=== PATIENT | female | born 1960 | race Two or more races ===

== ENCOUNTER 2020-04-05 06:18 | Day surgery (SDC) | payer OTHER ==
[~2020-04-05] VITALS: Ht 175.3 cm; Wt 74.8 kg
[2020-04-05] VITALS (8 sets, daily range): BP systolic 114–128; BP diastolic 62–73
[2020-04-05] MEDS ORDERED: HYDROCHLOROTHIA25 MG ORAL (06:53)
[2020-04-05] MEDS ORDERED: METFORMIN HCL500 M1 ORAL (06:53)
[2020-04-05] MEDS ORDERED: FORTEO2.4 ML SUBQ (06:53)
[2020-04-05] MEDS ORDERED: TRAZODONE HCL50 MG ORAL (06:53)
[2020-04-05] MEDS ORDERED: NS 500ML ONE (07:00)
[2020-04-05] MEDS ORDERED: Lidocaine 1% MPF 10mg/ml 5ml ONE (07:00)
--- NOTE | 2020-04-05 07:24 | Pre-Procedure Note/Attestation ---
Pre-Procedure Note/Attestation Complete Prior to Procedure Planned Procedure: not applicable Procedure Narrative: Colonoscopy, possible biopsy, polypectomy, hemostasis, submucosal injection Indications for Procedure Pre-Operative Diagnosis: rectal bleeding Attestation I attest that I discussed the nature of the procedure; its benefits; risks and complications; and alternatives (and the risks and benefits of such alternatives ), prior to the procedure, with the patient (or the patient's legal b2b outside sales representative). I attest that, if there was a reasonable possibility of needing a blood transfusion, the patient (or the patient's legal b2b outside sales representative) was given the [facility] standardized written summary, pursuant to the [place] Blood Safety Act ([place] Health and Safety Code # 1645, as amended). I attest that I re-evaluated the patient just prior to the surgery and that there has been no change in the patient's H&P, except as documented below: Mayra Gallegos MD Apr 05, 2020 07:24
[2020-04-05] MEDS ORDERED: fentaNYL 100 mcg/2 mL IV PRN (07:30)
[2020-04-05] MEDS ORDERED: DiphenhydrAMINE 50mg/ml Inj IVP PRN (07:30)
[2020-04-05] MEDS ORDERED: Atropine Inj 1mg/10ml Syr IV PRN (07:30)
[2020-04-05] MEDS ORDERED: Midazolam 2mg/2ml Inj IVP PRN (07:30)
--- NOTE | 2020-04-05 07:32 | Anethesia Preoperative Eval ---
Anesthesia Pre-op PMH/ROS General Date of Evaluation: Apr 05, 2020 Time of Evaluation: 07:15 Anesthesiologist: sadaf ASA Score: ASA 3 Mallampati Score Class I : Soft palate, uvula, fauces, pillars visible Class II: Soft palate, uvula, fauces visible Class III: Soft palate, base of uvula visible Class IV: Only hard plate visible Mallampati Classification: Class II Surgeon: paul Diagnosis: rectal bleeding Surgical Procedure: colonoscopy Anesthesia History: none Social History: smoking - nonsmoker Family History: no anesthesia problems Allergies: Coded Allergies: No Known Allergies (Unverified , 04/05/20) Medications: see eMAR Patient NPO?: Yes Past Medical History Cardiovascular: Reports: HTN Gastrointestinal/Genitourinary: Reports: other - hemorrhoids, diverticulosis Endocrine: Reports: DM PSxH Narrative: tmj sx, tonsillectomy Anesthesia Pre-op Phys. Exam Physician Exam Last Vital Signs Date Time Temp Pulse Resp B/P (MAP) Pulse Ox O2 Delivery O2 Flow Rate FiO2 04/05/20 06:56 97.0 18 18 123/73 96 Room Air Constitutional: NAD Neurologic: CN 2-12 intact Cardiovascular: RRR Respiratory: CTA Gastrointestinal: S/NT/ND Airway Exam Mallampati Score: Class II MO: limited Neck: flexible TMD: 2fb ROM: limited Anesthesia Pre-op A/P Labs COVID-19 negative Risk Assessment & Plan Assessment: asa3 Plan: mac Status Change Before Surgery: No Pre-Antibiotics Drug: Teena Jimenez MD Apr 05, 2020 07:32
--- NOTE | 2020-04-05 08:04 | Endoscopy Procedure Note ---
Endoscopy Procedure Note General Procedures Performed: colonoscopy Operative Findings/Diagnosis: banegas diverticulosis Specimen: none Pt Tolerated Procedure Well: Yes Estimated Blood Loss: none Anesthesia Anesthesiologist: Dr. Camilo Guadarrama MD Anesthesia: moderate sedation Medications Medication Given: see anesthesia record Inserted Devices Implant(s) used?: No Quality Quality of Bowel Preparation: Excellent Did scope reach the cecum?: Yes Was there any complications?: No GI Core Measures 50 yrs or older w/o bx or poly: Yes 10yrs. F/U recommended: No If not recommended, why?: Above average risk Mayra Gallegos MD Apr 05, 2020 08:04
--- NOTE | 2020-04-05 08:20 | Immediate Post-Op Evaluation ---
Immediate Post-Op Evalulation Immediate Post-Op Evalulation Procedure: colonoscopy Date of Evaluation: Apr 05, 2020 Time of Evaluation: 08:20 IV Fluids: 350ml 0.9ns Blood Products: none Estimated Blood Loss: negligible Blood Pressure Systolic: 128 Blood Pressure Diastolic: 69 Pulse Rate: 64 Respiratory Rate: 18 O2 Sat by Pulse Oximetry: 100 Temperature (Fahrenheit): 97.0 Pain Score (1-10): 0 Nausea: No Vomiting: No Complications none Patient Status: awake, reacts, patent Hydration Status: adequate Drug: Teena Jimenez MD Apr 05, 2020 08:20
--- NOTE | 2020-04-05 08:22 | 48 Hour Post Anesthesia Eval ---
Post Anesthesia Evaluation Procedure: colonoscopy Date of Evaluation: Apr 05, 2020 Time of Evaluation: 08:22 Blood Pressure Systolic: 123 0: 68 Pulse Rate: 58 Respiratory Rate: 18 Temperature (Fahrenheit): 97.0 O2 Sat by Pulse Oximetry: 100 Airway: patent Nausea: No Vomiting: No Pain Intensity: 0 Hydration Status: adequate Cardiopulmonary Status: stable Mental Status/LOC: patient returned to baseline Post-Anesthesia Complications: none Follow-up care needed: N/A Teena Garcia MD Apr 05, 2020 08:22
--- NOTE | 2020-04-05 11:59 | Operative Note - Dictated ---
DATE OF OPERATION: 04/05/2020 PREPROCEDURE DIAGNOSIS: Rectal bleeding. POSTPROCEDURE DIAGNOSES: Pandiverticulosis, large internal hemorrhoids. PROCEDURE: Colonoscopy. SURGEON: Mayra Gallegos MD. ANESTHESIOLOGIST: Tenea Garcia MD. ANESTHESIA: Propofol sedation. INDICATION FOR PROCEDURE: The patient is a 59-year-old female, who came to my office on February 26, 2020 with a history of rectal bleeding, sometimes occurring through her clothes. The patient reports that she has bled through her clothes at least four times and had large internal hemorrhoids. In light of her symptoms and bleeding, it was determined at this time to proceed with a colonoscopy prior to her hemorrhoid surgery. DESCRIPTION OF PROCEDURE: Upon consent of the patient, the patient was brought to the procedure room, and placed in left lateral decubitus position. Once adequate sedation was established with propofol drip, digital rectal exam was performed, which showed some large internal hemorrhoids. There were no external anal skin tags. The Olympus colonoscope was advanced through the anus and into the rectum. The descending colon, splenic flexure, transverse colon, hepatic flexure, and ascending colon were visualized. The cecum was easily reached and the ileocecal valve and appendiceal orifice were identified. The patient's prep was noted to be good. The colonoscope was slowly withdrawn. There was noted to be pandiverticulosis extending all the way to her right colon. Some of these were wide-based, but not acutely inflamed. Upon reaching the rectum, the colonoscope was retroflexed and there were noted to be large internal hemorrhoids. The scope was straightened, air was evacuated from the rectum, the colonoscope was removed. The patient was awakened from anesthesia and brought to postanesthesia recovery in stable condition. There were no complications. IMPRESSION: Pandiverticulosis, large internal hemorrhoids. PLAN: Repeat colonoscopy in five years. Continue high-fiber diet, yearly followup. Mayra Gallegos M.D. DR: JEANNIE JOB#: [id number] CC: Mayra Gallegos MD.; Fax#: [phone]
== END 2020-04-05 09:20 | disposition home or self-care (01) ==
LOC: GAS 06:18
DX: K57.30 Diverticulosis of large intestine without perforation or abscess without bleeding (principal); K64.8 Other hemorrhoids; I10 Essential (primary) hypertension; E11.9 Type 2 diabetes mellitus without complications; K58.9 Irritable bowel syndrome, unspecified; M81.0 Age-related osteoporosis without current pathological fracture
CPT/HCPCS: 45378; 94003; J2405; J2704; J7040; 94150

== ENCOUNTER 2020-04-07 09:02 | Day surgery (SDC) | payer OTHER ==
[~2020-04-07] VITALS: Ht 175.3 cm; Wt 73.9 kg
[2020-04-07] VITALS (12 sets, daily range): BP systolic 102–129; BP diastolic 52–82
--- NOTE | 2020-04-07 07:07 | Pre-Procedure Note/Attestation ---
Pre-Procedure Note/Attestation Complete Prior to Procedure Planned Procedure: not applicable Procedure Narrative: Procedure for Prolapse and Hemorrhoids Indications for Procedure Pre-Operative Diagnosis: Rectal bleeding Attestation I attest that I discussed the nature of the procedure; its benefits; risks and complications; and alternatives (and the risks and benefits of such alternatives ), prior to the procedure, with the patient (or the patient's legal commissary representative). I attest that, if there was a reasonable possibility of needing a blood transfusion, the patient (or the patient's legal commissary representative) was given the [facility] standardized written summary, pursuant to the [place] Blood Safety Act ([place] Health and Safety Code # 1645, as amended). I attest that I re-evaluated the patient just prior to the surgery and that there has been no change in the patient's H&P, except as documented below: Mayra Gallegos MD Apr 07, 2020 07:07
--- NOTE | 2020-04-07 08:54 | 48 Hour Post Anesthesia Eval ---
Post Anesthesia Evaluation Procedure: Hemorrhoidectomy Date of Evaluation: Apr 07, 2020 Time of Evaluation: 13:23 Blood Pressure Systolic: 128 0: 72 Pulse Rate: 73 Respiratory Rate: 18 Temperature (Fahrenheit): 98 O2 Sat by Pulse Oximetry: 99 Airway: patent Nausea: No Vomiting: No Pain Intensity: 1 Hydration Status: adequate Cardiopulmonary Status: Stable Mental Status/LOC: patient returned to baseline Follow-up Care/Observations: 0 Post-Anesthesia Complications: 0 Follow-up care needed: ready to discharge David Vicente MD Apr 07, 2020 08:54
--- NOTE | 2020-04-07 08:54 | Immediate Post-Op Evaluation ---
Immediate Post-Op Evalulation Immediate Post-Op Evalulation Procedure: Hemorrhoidectomy Date of Evaluation: Apr 07, 2020 Time of Evaluation: 11:09 IV Fluids: 700 LR Blood Products: 0 Estimated Blood Loss: 10 Urinary Output: 0 Blood Pressure Systolic: 131 Blood Pressure Diastolic: 69 Pulse Rate: 74 Respiratory Rate: 16 O2 Sat by Pulse Oximetry: 100 Temperature (Fahrenheit): 97.6 Pain Score (1-10): 1 Nausea: No Vomiting: No Complications 0 Patient Status: awake, reacts, patent, none Hydration Status: adequate Dru Gram Cefoxitin IV Given Within 1 Hr of Incision: Yes Time Given: 10:16 David Vicente MD Apr 07, 2020 08:53
[~2020-04-07 09:02] MED LIST: Acetaminophen (Non formulary) 100 ML IV ONE; Atropine Sulfate 0.4mg/ml inj IVP PRN; DiphenhydrAMINE 50mg/ml Inj IVP PRN; FORTEO2.4 ML SUBQ; HYDROCHLOROTHIA25 MG ORAL; HYDROcodone/Acetamin 5/325 tab ORAL PRN; HYDROcodone/Acetamin 7.5/325 tab ORAL PRN; Ketorolac 30mg Inj IV PRN; LORazepam Inj 2mg/ml 1ml IV PRN; LR 1000ml 1,000 ML IVLG SCH; Labetalol 5mg/ml 20ml vial IV PRN; Lidocaine 1% Plain 30 ml INJ ONE; METFORMIN HCL500 M1 ORAL; Metoclopramide 10mg/2ml Inj IVP PRN; Midazolam 2mg/2ml Inj IVP PRN; Sodium Chloride 10ml vial INJ ONE; TRAZODONE HCL50 MG ORAL; fentaNYL 100 mcg/2 mL IV PRN; oxyCODONE HCL/Acetaminophen 5/325mg ORAL PRN
[2020-04-07] MEDS ORDERED: EPINEPHrine 1mg/1ml Amp ONE (09:43)
[2020-04-07] MEDS ORDERED: Ropivacaine 5mg/ml Vial 20ml INJ ONE (09:44)
[2020-04-07] MEDS ORDERED: cefOXitin 2gm Inj ONE (09:44)
[2020-04-07] MEDS ORDERED: NS Irrig 1000ml IRRIG ONE ×2 (09:56→10:19)
--- NOTE | 2020-04-07 09:56 | Anethesia Preoperative Eval ---
Anesthesia Pre-op PMH/ROS General Date of Evaluation: Apr 07, 2020 Time of Evaluation: 09:49 Anesthesiologist: Cinthia ASA Score: ASA 3 Mallampati Score Class I : Soft palate, uvula, fauces, pillars visible Class II: Soft palate, uvula, fauces visible Class III: Soft palate, base of uvula visible Class IV: Only hard plate visible Mallampati Classification: Class II Surgeon: El Diagnosis: Hemorrhoids Surgical Procedure: Hemorroidectomy Anesthesia History: none Family History: no anesthesia problems Allergies: Coded Allergies: No Known Allergies (Unverified , 04/05/20) Medications: see eMAR Patient NPO?: Yes Past Medical History Cardiovascular: Reports: HTN Gastrointestinal/Genitourinary: Reports: other - IBS Endocrine: Reports: DM Musculoskeletal/Integumentary: Reports: other - Osteoporosis PSxH Narrative: D/C, Multiple Foot SXs Anesthesia Pre-op Phys. Exam Physician Exam Last Vital Signs Date Time Temp Pulse Resp B/P (MAP) Pulse Ox O2 Delivery O2 Flow Rate FiO2 04/07/20 09:42 Room Air 04/07/20 09:30 97.6 77 20 129/82 98 Constitutional: NAD Neurologic: CN 2-12 intact Cardiovascular: RRR Respiratory: CTA Gastrointestinal: S/NT/ND Airway Exam Mallampati Score: Class II MO: full ROM: limited Teeth: missing, intact Anesthesia Pre-op A/P Risk Assessment & Plan Assessment: ASA 3 Plan: TIVA Status Change Before Surgery: No Pre-Antibiotics Dru Grams Ancef IV Given Within 1 Hr of Incision: Yes Time Given: 10:16 David Vicente MD Apr 07, 2020 09:56
[2020-04-07] MEDS ORDERED: Sterile Water Irrig 1000ml IRRIG ONE (10:00)
[2020-04-07] MEDS ORDERED: Acetic Acid 3% Solution 15ml TOPIC ONE (10:00)
[2020-04-07] MEDS ORDERED: Flumazenil 0.5mg/5ml Inj IV ONE (10:45)
--- NOTE | 2020-04-07 10:54 | Brief Operative Note ---
Immediate Post Operative Note Operative Note Pre-op Diagnosis: Rectal bleeding Procedure: Procedure for Prolapse and Hemorrhroids (PPH) Post-op Diagnosis: large internal hemorrhoids Post-op Diagnosis: same as pre-op Findings: consistent w/pre-op dx studies Surgeon: Mayra Gallegos MD Anesthesiologist: David Vicente MD Anesthesia: moderate sedation Specimen: yes Complications: none Condition: stable Fluids: see anesthesia record Estimated Blood Loss: minimal Drains: none Implant(s) used?: No Mayra Gallegos MD Apr 07, 2020 10:54
[2020-04-07] MEDS: Meperidine 25mg/0.5ml Inj (FOR RIGORS ONLY) IV PRN ×2 (11:05→11:34)
[2020-04-07] MEDS: Hydromorphone 0.5mg/0.5ml inj IVP PRN ×2 (11:05→11:20)
--- NOTE | 2020-04-07 15:45 | Operative Note - Dictated ---
DATE OF OPERATION: 04/07/2020 PREOPERATIVE DIAGNOSIS: Prolapsing large bleeding internal hemorrhoids. POSTOPERATIVE DIAGNOSIS: Prolapsing large bleeding internal hemorrhoids. PROCEDURE: Procedure of prolapse and hemorrhoids (PPH). SURGEON: Mayra Gallegos MD. ANESTHESIOLOGIST: David Vicente MD. ANESTHESIA: Propofol sedation with local anesthetic. INDICATION FOR PROCEDURE: The patient is a 59-year-old female, who came to [facility] in the office on February 26, 2020 with a history of rectal bleeding which was internal hemorrhoids that occasionally bleeds through her clothes. The patient had a colonoscopy done at [facility] in 2018. In light of the patient's bleeding and discomfort, it was determined that it is time to proceed with the procedure for prolapse and hemorrhoids. The patient had a colonoscopy done by [facility] two days ago, which was significant for pandiverticulosis and large internal hemorrhoids. She had no polyps found. DESCRIPTION OF PROCEDURE: Upon consent of the patient, the patient was brought to the operating room, placed in the prone nona-knife position on the operating table. Once adequate sedation was established with propofol drip, the patient's buttocks were prepped and draped in usual surgical fashion. A 40 mL of 0.5% ropivacaine with epinephrine mixed with 8 mg of dexamethasone was used as a perianal and pudendal block. A Hill-Carroll retractors placed into the anal canal. There is to be large prolapsing internal hemorrhoids, especially in the right anterior region. The dilator Ethicon PPH stapler was inserted and removed. The dilator with clear obturator was then inserted and the dilator was removed with a clear obturator was held firmly to the buttocks and placed. The purse-string anoscope was inserted and a pressure was created approximately 2 centimeters proximal to the dentate line using a 2-0 Monocryl suture. Upon completion of the purse-string, the anoscope was removed and the suture was tightened around the anvil of the 33 mm Ethicon PPH stapler. Attention was applied to the suture while gradually closing the stapler. The perianal skin was checked to make sure there was no involvement of the perianal skin. The vaginal wall was also examined both manually and visually to make sure there is no involvement of the vaginal wall. The stapler was then fired, opened and withdrawn and there was noted to be a complete hemorrhoidal donut. This was passed off the field as a specimen. The anoscope was reinserted and any bleeding points along the staple line were ligated with [id number] 2-0 Vicryl suture. A sterile dressing dressing was then used as outer dressing. Sponge, needle, and instrument counts were correct at the end the case. The patient was awakened from anesthesia, brought to postanesthesia recovery room in stable condition. ESTIMATED BLOOD LOSS: Less than 5 mL. DRAINS: None. SPECIMEN: Hemorrhoidal donut. COMPLICATIONS: None. Mayra Gallegos M.D. DR: KRISTEN JOB#: [id number] CC: Dr. Elizabeth Branham
== END 2020-04-07 13:25 | disposition home or self-care (01) ==
LOC: SUR 09:02
DX: K64.8 Other hemorrhoids (principal); I10 Essential (primary) hypertension; E11.9 Type 2 diabetes mellitus without complications; M81.0 Age-related osteoporosis without current pathological fracture; K58.9 Irritable bowel syndrome, unspecified
CPT/HCPCS: 46947; 94003; J0131; J0171; J0694; J1100; J1170; J1885; J2001; J2250; J2704; J2765; J2795; J3010; 94150; J2180